=== PATIENT | male | born 1990 | race Caucasian/White ===

== ENCOUNTER 2022-02-08 14:32 | Outpatient (CLI) | payer OTHER ==
--- NOTE | 2022-02-08 16:31 | XRAY Report ---
PROCEDURE: Lumbar Spine 2 View INDICATIONS: LUMBAR RADICULOPATHY RIGHT TECHNIQUE: 2 views of the lumbar spine were acquired. COMPARISON: None. FINDINGS: Bones: 5 [id number] vertebrae are present. There is normal bony alignment. Mild posterior disc height loss at L1-2. Mild diffuse disc height loss L5-S1. No vertebral body compression fractures. No suspicious bony lesions. Soft tissues: Overlying bowel gas pattern is normal. No suspicious soft tissue calcifications. IMPRESSION: 1. Mild L1-2 and L5-S1 disc degeneration. Otherwise normal lumbar spine. Reviewed by: Belkys Lawrence MD on 02/08/2022 4:30 PM PDT Approved by: Belkys Lawrecne MD on 02/08/2022 4:30 PM PDT Station ID: [id number]
== END 2022-02-08 14:33 | disposition home or self-care (01) ==
LOC: DI 14:32
PROVIDERS: ATTEND Registered Nurse
DX: M51.36 Other intervertebral disc degeneration, lumbar region (principal); M51.37 Other intervertebral disc degeneration, lumbosacral region